=== PATIENT | male | born 1945 | race Caucasian/White ===

== ENCOUNTER 2024-06-05 10:59 | Emergency (ER) | payer OTHER ==
[~2024-06-05] VITALS: Ht 180.3 cm; Wt 94.3 kg
[2024-06-05 11:03] VITALS: BP_SYST 249; PULSE 74; RESP 18; TEMP 98.3; O2SAT 98
[2024-06-05 11:41] LABS: ERYTHROCYTE SEDIMENTATION RATE 4 MM/HR (0-15)
[2024-06-05 11:44] LABS: BASOPHILS % (AUTO) 0.7 % (0.0-2.0); EOSINOPHILS # (AUTO) 0.2 K/uL (0.0-0.4); EOSINOPHILS % (AUTO) 3.2 % (0.0-4.0); HEMATOCRIT 46.9 % (36-54); HEMOGLOBIN 15.8 g/dL (14.0-18.0); LYMPHOCYTES # (AUTO) 1.9 K/uL (1.0-5.5); LYMPHOCYTES % (AUTO) 27.2 % (20.5-51.5); MEAN CORPUSCULAR HEMOGLOBIN 30 pg (27-31); MEAN CORPUSCULAR HGB CONC 34 % (32-36); MEAN CORPUSCULAR VOLUME 91 fL (79.0-98.0); MONOCYTES # (AUTO) 0.5 K/uL (0.0-1.0); MONOCYTES % (AUTO) 6.9 % (1.7-9.3); NEUTROPHILS # (AUTO) 4.3 K/uL (1.8-7.7); PLATELET COUNT (AUTO) 223 K/uL (130-430); RED BLOOD CELL COUNT(AUTO) 5.18 MIL/uL (4.2-6.2); RED CELL DISTRIBUTION WIDTH 13.8 % (9.0-15.0)
[2024-06-05 12:01] LABS: PROTHROMBIN TIME 10.4 SECS (9.5-12.5)
[2024-06-05 12:13] LABS: ALANINE AMINOTRANSFERASE 28 U/L (12-78); ALBUMIN 3.3 g/dL (3.4-4.8); ANION GAP 9 (5-15); ASPARTATE AMINOTRANSFERASE 19 U/L (10-37); BILIRUBIN,DIRECT 0.2 mg/dL (0.0-0.3); CALCIUM 8.8 mg/dL (8.4-11.0); CARBON DIOXIDE 28 mmol/L (23-29); CHLORIDE 100 mmol/L (98-107); CREATININE 1.03 mg/dL (0.55-1.30); GLUCOSE 331 mg/dL (74-106); POTASSIUM 4.1 mmol/L (3.5-5.1); SODIUM SERUM 137 mmol/L (136-145); TOTAL BILIRUBIN 0.6 mg/dL (0.0-1.0); TOTAL PROTEIN, SERUM 6.9 g/dL (6.4-8.3); UREA NITROGEN, BLOOD 11 mg/dL (8-21)
[2024-06-05] MEDS ORDERED: TRAM50TA2 PO (12:47)
[2024-06-05] MEDS ORDERED: IBUP-1969 PO (12:47)
[2024-06-05 13:10] VITALS: BP_SYST 249; PULSE 74; RESP 18; TEMP 98.3; O2SAT 98
== END 2024-06-05 13:34 | disposition home or self-care (01) ==
LOC: SED 10:59
DX: S86.892A Other injury of other muscle(s) and tendon(s) at lower leg level, left leg, initial encounter (principal); Z88.5 Allergy status to narcotic agent; X58.XXXA Exposure to other specified factors, initial encounter; Y93.89 Activity, other specified; Y92.89 Other specified places as the place of occurrence of the external cause; Y99.8 Other external cause status
CPT/HCPCS: 36415; 80048; 80076; 85025; 85610; 85651; 85730; 93971; 99284

== ENCOUNTER 2024-06-25 04:07 | Emergency (ER) | payer OTHER ==
[~2024-06-25] VITALS: Ht 180.3 cm; Wt 94.3 kg
[~2024-06-25 04:07] MED LIST: IBUP-1969 PO; TRAM50TA2 PO
[2024-06-25 04:26] VITALS: BP_SYST 256; PULSE 80; RESP 20; TEMP 97.3; O2SAT 96
[2024-06-25] MEDS ORDERED: LIDOCAINE 2% JELLY UROJECT 10 ML MM ONE (04:32)
[2024-06-25 05:01] LABS: BASOPHILS # (AUTO) 0.1 K/uL (0.0-0.2); EOSINOPHILS # (AUTO) 0.2 K/uL (0.0-0.4); HEMATOCRIT 50.4 % (36-54); HEMOGLOBIN 17.3 g/dL (14.0-18.0); LYMPHOCYTES # (AUTO) 1.8 K/uL (1.0-5.5); LYMPHOCYTES % (AUTO) 19.6 % (20.5-51.5); MEAN CORPUSCULAR HEMOGLOBIN 31 pg (27-31); MEAN CORPUSCULAR HGB CONC 34 % (32-36); MEAN CORPUSCULAR VOLUME 90 fL (79.0-98.0); MONOCYTES # (AUTO) 0.7 K/uL (0.0-1.0); MONOCYTES % (AUTO) 7.7 % (1.7-9.3); NEUTROPHILS # (AUTO) 6.6 K/uL (1.8-7.7); NEUTROPHILS % (AUTO) 69.7 % (40.0-70.0); PLATELET COUNT (AUTO) 274 K/uL (130-430); RED BLOOD CELL COUNT(AUTO) 5.61 MIL/uL (4.2-6.2); RED CELL DISTRIBUTION WIDTH 14.3 % (9.0-15.0); WHITE BLOOD COUNT (AUTO) 9.4 K/uL (4.8-10.8)
[2024-06-25] MEDS ORDERED: IOHEXOL 350 mgI/mL, 150 ML INFUS..BTL IV ONE (05:05)
[2024-06-25 05:17] LABS: PROTHROMBIN TIME 10.7 SECS (9.5-12.5)
[2024-06-25 05:22] LABS: ALANINE AMINOTRANSFERASE 33 U/L (12-78); ANION GAP 13 (5-15); ASPARTATE AMINOTRANSFERASE 30 U/L (10-37); CALCIUM 9.3 mg/dL (8.4-11.0); CARBON DIOXIDE 25 mmol/L (23-29); CHLORIDE 101 mmol/L (98-107); CREATININE 0.93 mg/dL (0.55-1.30); GLUCOSE 234 mg/dL (74-106); POTASSIUM 3.9 mmol/L (3.5-5.1); SODIUM SERUM 139 mmol/L (136-145); TOTAL BILIRUBIN 0.9 mg/dL (0.0-1.0); TOTAL PROTEIN, SERUM 7.7 g/dL (6.4-8.3); UREA NITROGEN, BLOOD 13 mg/dL (8-21)
[2024-06-25] MEDS: traMADol HCL HCL 50 MG TABLET (ULTRAM) PO ONE ×2 (05:35→06:12)
[2024-06-25] MEDS: cloNIDine HCL 0.1 MG TABLET PO ONE ×2 (05:58→07:53)
[2024-06-25] MEDS ORDERED: glipizide (06:04)
[2024-06-25] MEDS ORDERED: carvedilol (06:04)
[2024-06-25] MEDS ORDERED: hydralazine (06:04)
[2024-06-25] MEDS ORDERED: CLOPIDOGREL (06:04)
[2024-06-25] MEDS: *HEPARIN PER PHARMACY XX ONE (06:15)
[2024-06-25] MEDS ORDERED: HEPARIN SODIUM,PORCINE 3000 UNITS/0.6 ML BOLUS IVP PRN (06:45)
[2024-06-25] MEDS ORDERED: HEPARIN SODIUM,PORCINE 2000 UNITS/0.4 ML BOLUS IVP PRN (06:45)
[2024-06-25] MEDS ORDERED: CARV25TA55 PO (06:56)
[2024-06-25] MEDS ORDERED: CLOP75TA32 PO (06:56)
[2024-06-25] MEDS ORDERED: GLIP5TAB23 PO (06:56)
[2024-06-25] MEDS ORDERED: HYDR50TA44 PO (06:56)
[2024-06-25] MEDS: HEPARIN SODIUM,PORCINE 5,000 UNITS/ML VIAL IV ONE (07:13)
[2024-06-25] MEDS: HEPARIN 25,000 UNITS in 250 ML PREMIX IV PRN (07:40)
[2024-06-25] MEDS: MORPHINE 2 MG/ML INJ. SYRINGE IVP ONE ×2 (07:52→11:17)
[2024-06-25] MEDS: LABETALOL HCL 20 MG/4 ML CARTRIDGE IVP ONE (08:56)
[2024-06-25] MEDS ORDERED: INSULIN REGULAR, HUMAN 10 UNITS/0.1 ML, 3 ML VIAL IVP ONE (13:00)
[2024-06-25 13:44] VITALS: BP_SYST 194; PULSE 82; RESP 20; TEMP 97; O2SAT 98
== END 2024-06-25 13:59 | disposition short-term general hospital (02) ==
LOC: SED 04:07
DX: E11.51 Type 2 diabetes mellitus with diabetic peripheral angiopathy without gangrene (principal); M79.662 Pain in left lower leg; I16.0 Hypertensive urgency; I25.2 Old myocardial infarction; I10 Essential (primary) hypertension; E78.5 Hyperlipidemia, unspecified; Z88.5 Allergy status to narcotic agent; Z86.73 Personal history of transient ischemic attack (TIA), and cerebral infarction without residual deficits; Z79.899 Other long term (current) drug therapy; Z79.84 Long term (current) use of oral hypoglycemic drugs; Z79.02 Long term (current) use of antithrombotics/antiplatelets
CPT/HCPCS: 99291; 71275; 96366; 96365; 93971; 96375; 80053; 85025; 85610; 85730; 84484; 36415; 93005; 75635; 96376; J1644 ×2; J2270; Q9967